=== PATIENT | male | born 1955 | race Caucasian/White ===

== ENCOUNTER 2017-01-02 08:37 | Emergency (ER) | payer MEDICAID ==
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
--- NOTE | 2017-01-02 09:58 | Diagnostic Imaging Report ---
CHEST X-RAY: AP view INDICATION: pain COMPARISON: None FINDINGS: There is no focal consolidation or pleural effusions The heart is normal in size. The osseous structures demonstrate no acute abnormalities. There is prominence of the left humerus probably related to old healed fracture. There is prominence of the left humeral shaft probably related to old fracture. IMPRESSION: No acute cardiopulmonary disease. There is prominence of the left humeral shaft probably related to old fracture. Please correlate with clinical findings.
--- NOTE | 2017-01-02 10:03 | Diagnostic Imaging Report ---
Left hand 3 views Indication: pain Comparison: none Findings: Mild to moderate degenerative changes are noted. No evidence of acute fracture. Subchondral Cystic changes of the lunate bone are noted. No focal soft tissue swelling. Impression: No evidence of an acute fracture. [id number] degenerative changes. In the setting of trauma, if clinical symptoms persist and there is continued concern for an occult fracture, follow up exams in 5-7 days is suggested.
--- NOTE | 2017-01-02 10:07 | Diagnostic Imaging Report ---
Right hand 3 views Indication: pain Comparison: none Findings: There is a tiny 2 mm radiopaque density seen projecting adjacent to the second distal phalanx. Mild to moderate degenerative changes are seen. An old ulnar styloid fracture is noted. Mild demineralization and cystic changes seen along the hamate bone. No evidence of acute fracture. Impression: No evidence of an acute fracture. [id number]-[id number] degenerative changes. 2 mm radiodensity seen projecting along the soft tissues of the second distal phalanx. Please correlate with clinical findings. An age indeterminate, possibly chronic foreign body cannot be excluded. Slight demineralization of the hamate bone peripherally. Findings are nonspecific and may be post degenerative or less likely postinflammatory in etiology. Old ulnar oid styloid fracture. In the setting of trauma, if clinical symptoms persist and there is continued concern for an occult fracture, follow up exams in 5-7 days is suggested.
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
--- NOTE | 2017-01-02 10:16 | Diagnostic Imaging Report ---
Left rib series 3 views Indication: pain Comparison: none Findings: No evidence of the [fracture. No evidence of pneumothorax. No pleural effusions. There is prominence of the left proximal humeral shaft cortex. Impression: No evidence of an acute fracture. Prominence of the left humeral shaft cortex probably due to an old healed fracture. Please correlate with clinical findings and old exams. In the setting of trauma, if clinical symptoms persist and there is continued concern for an occult fracture, follow up exams in 5-7 days is suggested.
== END 2017-01-02 10:45 | disposition home or self-care (01) ==
LOC: ER 08:37
DX: M79.642 Pain in left hand (principal); M79.641 Pain in right hand; R07.81 Pleurodynia
CPT/HCPCS: 99284; 96372; 71010; 71101; 73130 ×2; 70450; 90715; J1885; Z7502